=== PATIENT | female | born 1945 | race Two or more races ===

== ENCOUNTER 2022-07-14 10:13 | Outpatient (CLI) | payer MEDICARE, OTHER ==
[2022-07-14 11:44] LABS: BASOPHILS % (AUTO) 0.3 % (0.0-2.0); EOSINOPHILS % (AUTO) 1.9 % (0.0-6.0); HEMATOCRIT 36 % (33-45); HEMOGLOBIN 11.5 g/dL (11.5-14.8); LYMPHOCYTES # (AUTO) 1.3 K/uL (0.8-4.8); LYMPHOCYTES % (AUTO) 23.4 % (20.0-44.0); MEAN CORPUSCULAR HGB CONC 32 g/dl (31.0-36.0); MEAN CORPUSCULAR VOLUME 79 fL (82-100); MONOCYTES # (AUTO) 0.4 K/uL (0.1-1.30); MONOCYTES % (AUTO) 7.6 % (2.0-12.0); NEUTROPHILS # (AUTO) 3.6 K/uL (1.8-8.9); NEUTROPHILS % (AUTO) 66.8 % (43.0-81.0); PLATELET COUNT (AUTO) 159 K/uL (150-450); RED BLOOD CELL COUNT(AUTO) 4.49 MIL/uL (4.0-5.2); WHITE BLOOD COUNT (AUTO) 5.4 K/uL (4.3-11.0)
[2022-07-14 11:58] LABS: BILIRUBIN,URINE NEGATIVE (NEGATIVE); COLOR,URINE YELLOW (YELLOW); LEUKOCYTE ESTERASE ,URINE SMALL (NEGATIVE); NITRITE, URINE NEGATIVE (NEGATIVE); PH,URINE 5.5 (5.0-8.0); PROTEIN,URINE NEGATIVE (NEGATIVE); UGLUCOSE NEGATIVE (NEGATIVE); UROBILINOGEN,URINE 0.2 EU/dL (0.2)
[2022-07-14 12:47] LABS: CHOLESTEROL 138 mg/dL (<200); FREE T4 (FREE THYROXINE) 1.24 ng/dL (0.76-1.46); HDL CHOLESTEROL 38 mg/dL (40-60); LDL 94 mg/dL (0-99); THYROID STIMULATING HORMONE 0.829 uIU/mL (0.358-3.74); TRIGLYCERIDES 71 mg/dL (30-150)
[2022-07-14 12:58] LABS: C-REACTIVE PROTEIN < 0.2 mg/dL (0.0-0.9)
[2022-07-14 13:05] LABS: ALANINE AMINOTRANSFERASE 20 U/L (12-78); ALBUMIN 3.6 g/dL (3.4-5.0); ALKALINE PHOSPHATASE 87 U/L (46-116); ASPARTATE AMINOTRANSFERASE 17 U/L (15-37); BILIRUBIN,TOTAL 0.4 mg/dL (0.2-1.0); CALCIUM, SERUM 8.4 mg/dL (8.5-10.1); CARBON DIOXIDE 30 mmol/L (21-32); CHLORIDE 108 mmol/L (98-107); CREATININE 0.7 mg/dL (0.6-1.3); GLUCOSE 97 mg/dL (74-106); MAGNESIUM 2.1 mg/dL (1.8-2.4); PHOSPHORUS 3.9 mg/dL (2.5-4.9); POTASSIUM 4.3 mmol/L (3.5-5.1); SODIUM SERUM 145 mmol/L (136-145); TOTAL PROTEIN, SERUM 6.6 g/dL (6.4-8.2); UREA NITROGEN, BLOOD 17 mg/dL (7-18)
[2022-07-14 13:12] LABS: BACTERIA,URINE Few /HPF (None Seen); RBC,URINE 0-2 /HPF (0-2); SQUAMOUS EPITHELIAL CELL,UR Few /HPF (None Seen)
== END 2022-07-14 23:59 | disposition home or self-care (01) ==
LOC: MSC 10:13
PROVIDERS: ATTEND Internal Medicine
DX: M19.042 Primary osteoarthritis, left hand (principal); M19.041 Primary osteoarthritis, right hand; Z79.1 Long term (current) use of non-steroidal anti-inflammatories (NSAID); M54.16 Radiculopathy, lumbar region; M81.0 Age-related osteoporosis without current pathological fracture; R41.3 Other amnesia; K21.9 Gastro-esophageal reflux disease without esophagitis; F32.A Depression, unspecified; Z79.899 Other long term (current) drug therapy
CPT/HCPCS: 80061; 85025; 87086; 83735; 83036; 84100; 86431; 85652; 81001; 36415; 84439; 82746; 84443; 82607; 80053; 86140; 82306; 86200; 82043; 82570; 84155; G0463

== ENCOUNTER 2023-02-04 10:43 | Outpatient (CLI) | payer MEDICARE, OTHER | END 2023-02-04 23:59 | disposition home or self-care (01) | LOC: MSC 10:43 | PROVIDERS: ATTEND Internal Medicine | DX: R42 Dizziness and giddiness (principal); R53.83 Other fatigue; M19.90 Unspecified osteoarthritis, unspecified site; Z79.1 Long term (current) use of non-steroidal anti-inflammatories (NSAID); M54.16 Radiculopathy, lumbar region; M81.0 Age-related osteoporosis without current pathological fracture; R41.3 Other amnesia; K21.9 Gastro-esophageal reflux disease without esophagitis; F32.A Depression, unspecified ==

== ENCOUNTER 2023-05-13 11:00 | Outpatient (CLI) | payer MEDICARE, OTHER | END 2023-05-13 23:59 | disposition home or self-care (01) | LOC: MSC 11:00 | PROVIDERS: ATTEND Internal Medicine | DX: D50.9 Iron deficiency anemia, unspecified (principal); M19.041 Primary osteoarthritis, right hand; R42 Dizziness and giddiness; R53.83 Other fatigue; M19.90 Unspecified osteoarthritis, unspecified site; Z79.1 Long term (current) use of non-steroidal anti-inflammatories (NSAID); M81.0 Age-related osteoporosis without current pathological fracture; R41.3 Other amnesia; K21.9 Gastro-esophageal reflux disease without esophagitis; F32.A Depression, unspecified; M54.16 Radiculopathy, lumbar region ==

== ENCOUNTER 2023-07-08 14:00 | Outpatient (CLI) | payer MEDICARE, OTHER | END 2023-07-08 23:59 | disposition home or self-care (01) | LOC: MSC 14:00 | PROVIDERS: ATTEND Internal Medicine | DX: J06.9 Acute upper respiratory infection, unspecified (principal); M19.041 Primary osteoarthritis, right hand; D50.9 Iron deficiency anemia, unspecified; R42 Dizziness and giddiness; R53.83 Other fatigue; M19.90 Unspecified osteoarthritis, unspecified site; Z79.1 Long term (current) use of non-steroidal anti-inflammatories (NSAID); M81.0 Age-related osteoporosis without current pathological fracture; R41.3 Other amnesia; K21.9 Gastro-esophageal reflux disease without esophagitis; M54.16 Radiculopathy, lumbar region; F32.A Depression, unspecified ==